=== PATIENT | male | born 1975 | race Caucasian/White ===

== ENCOUNTER 2016-03-21 05:45 | Day surgery (SDC) | payer OTHER ==
[2016-03-20 10:13] VITALS: BMI 29.2
[~2016-03-21] VITALS: Ht 180.3 cm; Wt 98.4 kg
[2016-03-21] VITALS (8 sets, daily range): BP systolic 100–125; BP diastolic 53–77; PULSE 56–79; RESP 12–20; Ht 180.3 cm; Wt 98.4 kg
[2016-03-21] MEDS ORDERED: hydrcodone PO (06:18)
[2016-03-21] MEDS ORDERED: POLYMYXIN/BACITRACIN 1L IRRIG ONE (06:56)
[2016-03-21] MEDS ORDERED: CEFAZOLIN 1 GM INJ ONE (07:00)
--- NOTE | 2016-03-21 07:55 | HPN ---
Date/Time of Note Date/Time of Note DATE: 03/21/16 TIME: 07:55 Interval H&P Admission Note Pt. seen H&P reviewed: No system changes OSMAR ZHANG DPM Mar 21, 2016 07:55
[2016-03-21] MEDS ORDERED: LIDOCAINE 2% (MDV) 20 ML INJ ONE (08:10)
[2016-03-21] MEDS ORDERED: BUPIVACAINE 0.5% (SDV) 30 ML INJ ONE (08:10)
[2016-03-21] MEDS ORDERED: FENTAnyl 50 MCG/ML VIAL ONE (08:17)
[2016-03-21] MEDS ORDERED: LIDOCAINE 2% (MDV) 20 ML INJ INJ ONE (08:18)
[2016-03-21] MEDS ORDERED: BUPIVACAINE 0.5% 30 ML VIAL INJ ONE (08:18)
[2016-03-21] MEDS ORDERED: POLYMYXIN/BACITRACIN 1L IRRIG IRR ONE (08:18)
[2016-03-21] MEDS ORDERED: PROPOFOL 20 ML ONE (08:43)
[2016-03-21] MEDS ORDERED: LIDOCAINE 2% (SDV) 5 ML INJ ONE (08:43)
[2016-03-21] MEDS ORDERED: FENTAnyl 50 MCG/ML VIAL IV PRN ×2 (09:00)
[2016-03-21] MEDS ORDERED: MEPERIDINE 25 MG INJ IV PRN (09:00)
[2016-03-21] MEDS ORDERED: HYDROmorphONE (0.2 MG/ML) 10ML SYG IV PRN ×3 (09:00)
[2016-03-21] MEDS ORDERED: ONDANSETRON 4 MG INJ IV PRN (09:00)
[2016-03-21] MEDS ORDERED: DIPHENHYDRAMINE 50 MG INJ IV PRN (09:00)
[2016-03-21] MEDS ORDERED: METOCLOPRAMIDE 10 MG INJ IV PRN (09:00)
--- NOTE | 2016-03-21 09:32 | RADRPT ---
PROCEDURE: Intraoperative imaging of the right fifth toe with fluoroscopy. CLINICAL INDICATION: Right fifth toe pain. Intraoperative. TECHNIQUE: 6 images of the right fifth toe were obtained in the operating room with an image inten sifier. No radiologist was in attendance. 15 seconds of fluoroscopy time was used. COMPARISON: No prior study is available for comparison. FINDINGS: Images demonstrate open reduction and internal fixation of the right fifth toe. IMPRESSION: 1. Intraoperative imaging of the right fifth toe. RPTAT: QQ .William Doll MD, MD Date Time Electronically viewed and signed by .William Doll MD, on 03/21/2016 09:32 .R/
--- NOTE | 2016-03-21 10:40 | RADRPT ---
PROCEDURE: XR Right Foot. CLINICAL INDICATION: Right foot pain. Postop. TECHNIQUE: Three views. Frontal, lateral, and oblique. COMPARISON: Intraoperative imaging done earlier the same day. FINDINGS: There is a single pin transfixing the comminuted fracture of the base of the fifth proximal phalanx. There are old healed fractures of the shafts of the second and third metatarsals and the base of t he third metatarsal. There is no other new fracture. There is no dislocation. The soft tissues are normal. Articular surfaces are intact. There is no lytic or blastic lesion. IMPRESSION: 1. Postoperative changes of the fifth toe. 2. Old healed fractures of the second, third, and fourth metatarsals. 3. No other new abnormality. RPTAT: QQ .William Doll MD, Date Time Electronically viewed and signed by .William Doll MD, on 03/21/2016 10:40 .R/
[2016-03-21] MEDS ORDERED: HYDROCODONE/APAP (10/325) TAB PO PRN (14:00)
== END 2016-03-21 10:30 | disposition home or self-care (01) ==
LOC: SDS 05:45
PROVIDERS: ATTEND Podiatrist Foot & Ankle Surgery
DX: S92.511G Displaced fracture of proximal phalanx of right lesser toe(s), subsequent encounter for fracture with delayed healing (principal); V29.9XXD Motorcycle rider (driver) (passenger) injured in unspecified traffic accident, subsequent encounter
CPT/HCPCS: 28525; 73630; C1713; J0690; J3010